=== PATIENT | female | born 1955 | race Caucasian/White ===

== ENCOUNTER → 2018-05-18 10:40 | Outpatient (CLI) | payer BC | END | disposition home or self-care (01) | LOC: D.CT 10:40 | DX: R47.9 Unspecified speech disturbances (principal); R53.1 Weakness; R42 Dizziness and giddiness ==

== ENCOUNTER → 2018-05-24 13:19 | Outpatient (CLI) | payer BC | END | disposition home or self-care (01) | LOC: D.ECHO 13:00 | DX: G45.9 Transient cerebral ischemic attack, unspecified (principal); R42 Dizziness and giddiness ==